=== PATIENT | male | born 1995 ===

== ENCOUNTER 2024-07-17 20:48 | Emergency (ER) | payer OTHER ==
[~2024-07-17] VITALS: Ht 185.4 cm; Wt 115.7 kg
[2024-07-17] MEDS ORDERED: Ibuprofen 400 MG Tab PO ONE (21:50)
[2024-07-17] MEDS ORDERED: CEPH500 PO (21:55)
[2024-07-17] MEDS ORDERED: IBUP800 PO (21:55)
[2024-07-17] MEDS ORDERED: Cephalexin Monohydrate 500 MG Cap PO ONE (21:55)
== END 2024-07-17 22:18 | disposition home or self-care (01) ==
LOC: ER 20:48
DX: S51.842A Puncture wound with foreign body of left forearm, initial encounter (principal); W45.8XXA Other foreign body or object entering through skin, initial encounter
CPT/HCPCS: A9270